=== PATIENT | male | born 1975 | race Caucasian/White ===

== ENCOUNTER 2021-06-15 19:51 | Emergency (ER) | payer OTHER ==
[~2021-06-15] VITALS: Ht 180.3 cm; Wt 120.2 kg
[2021-06-15 20:06] VITALS: BP 146/86
--- NOTE | 2021-06-15 20:09 | NUR ---
To ED bed 04
--- NOTE | 2021-06-15 20:10 | NUR ---
PT BIB SELF FOR C/C RIGHT HAND AND WRIST PAIN 6/10 S/P FALL 2 DAYS AGO. NO NOTED DEFORMITY. CAP REFILL < 3 SECONDS. + TINGLING TO FINGER TIPS. PT REPORTS HE WAS IN THE GARAGE AND HE DID NOT HAVE HIS OXYGEN ON, WHICH CAUSED HIM TO PASS OUT. PT REPORTS LOSS OF CONSCIOUSNESS, BUT WAS ABLE TO CATCH HIMSELF ON HIS RIGHT HAND. DENIES HITTING HEAD. PT REPORTS HX OF COPD AND IS ON 4L O2 AT HOME. PT REPORTS HX OF FALLS WHEN NOT WEARING OXYGEN. MED HX: COPD, HTN. DM, ELEVATED CHOLESTEROL, SLEEP APNEA, HERNIA, LUNG NODULES ALLERGIES: NKA
--- NOTE | 2021-06-15 20:11 | NUR ---
XRAY AT BEDSIDE.
[2021-06-15] MEDS ORDERED: IBUPROFEN 800 MG TAB PO ONE (20:20)
[2021-06-15] MEDS ORDERED: ACET-9525 PO (21:26)
[2021-06-15] MEDS ORDERED: IBUP-2218 PO (21:26)
--- NOTE | 2021-06-15 21:45 | NUR ---
Patient discharged with v/s stable. Written and verbal after care instructions given and explained. Patient alert, oriented and verbalized understanding of instructions. Ambulatory with steady gait. All questions addressed prior to discharge. ID band removed. Patient advised to follow up with PMD. Rx of NORCO AND IBUPROFEN given. Patient educated on indication of medication including possible reaction and side effects. Opportunity to ask questions provided and answered.
== END 2021-06-15 21:45 | disposition home or self-care (01) ==
LOC: MED 19:51
DX: S62.111A Displaced fracture of triquetrum [cuneiform] bone, right wrist, initial encounter for closed fracture (principal); J44.9 Chronic obstructive pulmonary disease, unspecified; Z79.899 Other long term (current) drug therapy; W19.XXXA Unspecified fall, initial encounter; Y93.89 Activity, other specified; Y92.89 Other specified places as the place of occurrence of the external cause; Y99.8 Other external cause status
CPT/HCPCS: 73110; 73130; 99284